=== PATIENT | male | born 1980 | race Caucasian/White ===

== ENCOUNTER 2017-12-07 18:20 | Emergency (ER) | payer SELFPAY ==
[~2017-12-07] VITALS: Ht 177.8 cm; Wt 86.0 kg
[2017-12-07] MEDS ORDERED: NARCAN4 MG NS (22:18)
[2017-12-07 22:45] VITALS: BP 130/76
== END 2017-12-07 22:46 | disposition home or self-care (01) ==
LOC: EME 18:20
DX: T40.2X1A Poisoning by other opioids, accidental (unintentional), initial encounter (principal)
CPT/HCPCS: 93005; 99281; 99284; J2310; J2405